=== PATIENT | female | born 1960 ===

== ENCOUNTER 2017-11-06 05:41 | Inpatient (IN) | payer OTHER ==
[2017-11-06] VITALS (14 sets, daily range): BP systolic 89–130; BP diastolic 54–88
[~2017-11-06] VITALS: Ht 167.6 cm; Wt 83.2 kg
[2017-11-06] MEDS ORDERED: SULFASALAZINE500 MG ORAL (06:24)
[2017-11-06] MEDS ORDERED: HUMERA INJ (06:24)
[2017-11-06] MEDS ORDERED: PREDNISONE1 MG PO (06:24)
[2017-11-06] MEDS ORDERED: fentaNYL 100 mcg/2 mL IV ONE (06:54)
[2017-11-06] MEDS ORDERED: Midazolam 2mg/2ml Inj ONE (06:56)
[2017-11-06] MEDS ORDERED: Succinylcholine 20mg/ml 10ml vial ONE (07:04)
[2017-11-06] MEDS ORDERED: Vancomycin 1gm inj IVPB ONE ×2 (07:04→07:23)
[2017-11-06] MEDS ORDERED: Lidocaine 1% MPF 10mg/ml 5ml ONE (07:08)
--- NOTE | 2017-11-06 07:22 | Pre-Procedure Note/Attestation ---
Pre-Procedure Note/Attestation Complete Prior to Procedure Planned Procedure: not applicable Procedure Narrative: Anterior cervical discectomy and fusion C5/6 Indications for Procedure Pre-Operative Diagnosis: C5/6 stenosis with HNP Attestation I attest that I discussed the nature of the procedure; its benefits; risks and complications; and alternatives (and the risks and benefits of such alternatives ), prior to the procedure, with the patient (or the patient's legal u.s. representative). I attest that, if there was a reasonable possibility of needing a blood transfusion, the patient (or the patient's legal u.s. representative) was given the [facility] standardized written summary, pursuant to the [place] Blood Safety Act ([place] Health and Safety Code # 1645, as amended). I attest that I re-evaluated the patient just prior to the surgery and that there has been no change in the patient's H&P, except as documented below:No changes. Terrance Goldman MD Nov 06, 2017 07:22
[2017-11-06] MEDS ORDERED: Thrombin 5000 units spray kit TOPIC ONE (07:23)
[2017-11-06] MEDS ORDERED: Gelfoam Size TOPIC ONE (07:24)
[2017-11-06] MEDS ORDERED: Thrombin 5000 units TOPIC ONE (07:24)
[2017-11-06] MEDS ORDERED: Bacitracin 50000 Units Vial ONE (07:24)
[2017-11-06] MEDS ORDERED: Gelfoam Absorbable 1gm powder pkt TOPIC ONE (07:24)
[2017-11-06] MEDS ORDERED: EPINEPHrine 1mg/1ml Amp ONE (07:24)
[2017-11-06] MEDS ORDERED: Bupivacaine 0.5% Inj 30 ml vial INJ ONE (07:25)
[2017-11-06] MEDS ORDERED: Sterile Water Irrig 1000ml IRRIG ONE (07:30)
[2017-11-06] MEDS ORDERED: NS 275ml ONE (07:30)
[2017-11-06] MEDS ORDERED: Zemuron 50mg/5ml Inj IV ONE (07:30)
[2017-11-06] MEDS ORDERED: LR 1000ml ONE (07:30)
[2017-11-06] MEDS ORDERED: NS Irrig 1000ml ONE (07:30)
[2017-11-06] MEDS ORDERED: Propofol 1,000mg/ 100ml btl IV ONE (07:30)
[2017-11-06] MEDS ORDERED: Dexamethasone 4mg/ml vial ONE (08:13)
[2017-11-06] MEDS ORDERED: Morphine Sulfate 10mg/ml Inj ONE (08:31)
[2017-11-06] MEDS ORDERED: Glycopyrrolate 0.2mg/ml 1ml Vial ONE (08:33)
[2017-11-06] MEDS ORDERED: Sodium Chloride 10ml vial INJ ONE (08:33)
[2017-11-06] MEDS ORDERED: Neostigmine 1mg/ml 10ml Inj ONE (08:33)
[2017-11-06] MEDS ORDERED: LR 1000ml 1,000 ML IVLG SCH (08:49)
--- NOTE | 2017-11-06 08:49 | Anethesia Preoperative Eval ---
Anesthesia Pre-op PMH/ROS General Date of Evaluation: Nov 06, 2017 Time of Evaluation: 07:20 Anesthesiologist: Deisi ASA Score: ASA 2 Mallampati Score Class I : Soft palate, uvula, fauces, pillars visible Class II: Soft palate, uvula, fauces visible Class III: Soft palate, base of uvula visible Class IV: Only hard plate visible Mallampati Classification: Class II Surgeon: Jones Diagnosis: Cervical radiculopathy Surgical Procedure: ACDF C5-C6 Anesthesia History: PONV Family History: no anesthesia problems Allergies: Coded Allergies: ACETAMINOPHEN (Verified Allergy, Unknown, 11/05/17) CEPHALEXIN (Verified Allergy, Unknown, 11/05/17) HYDROCODONE (Verified Allergy, Unknown, 11/05/17) Medications: see eMAR Past Medical History Cardiovascular: Denies: HTN, CAD, GA, valve dz, arrhythmia, other Pulmonary: Denies: asthma, COPD, MALI, other Gastrointestinal/Genitourinary: Reports: GERD - mild; Denies: CRI, ESRD, other Neurologic/Psychiatric: Reports: depression/anxiety, other - chronic pain; Denies: dementia, CVA, TIA Endocrine: Reports: steroids - Long time use of prednizone for RA HEENT: Denies: cataract (L), cataract (R), glaucoma, [place] (L), [place] (R), other Hematology/Immune: Denies: anemia, DVT, bleeding disorder, other Musculoskeletal/Integumentary: Reports: RA - stable; Denies: OA, DJD, DDD, edema, other Other: other - overweight PMH Narrative: as above PSxH Narrative: Hysterectomy, podiatry Sx Anesthesia Pre-op Phys. Exam Physician Exam Last Vital Signs Date Time Temp Pulse Resp B/P (MAP) Pulse Ox O2 Delivery O2 Flow Rate FiO2 11/06/17 06:27 97.7 92 20 130/88 (102) 97 97.7 11/06/17 06:12 Room Air Constitutional: NAD Neurologic: CN 2-12 intact Cardiovascular: RRR, no M/R/G Respiratory: CTA Gastrointestinal: S/NT/ND Airway Exam Mallampati Score: Class II MO: full Neck: stiff ROM: limited Teeth: intact Dentures: no upper, no lower Anesthesia Pre-op A/P Labs see chart Studies Pre-op Studies: EKG - NSR, CXR - WNL Risk Assessment & Plan Assessment: ASA 2 Plan: GA with ETT, Neuromonitoring, PONV prevention Status Change Before Surgery: No Pre-Antibiotics Drug: Vanco 1gr. Given Within 1 Hr of Incision: Yes Time Given: 08:18 Steven Lipscomb MD Nov 06, 2017 08:49
[2017-11-06] MEDS ORDERED: Ketorolac 30mg Inj IV PRN (09:00)
[2017-11-06] MEDS ORDERED: Metoclopramide 10mg/2ml Inj IVP PRN (09:00)
[2017-11-06] MEDS ORDERED: fentaNYL 100 mcg/2 mL IV PRN (09:00)
[2017-11-06] MEDS ORDERED: Midazolam 2mg/2ml Inj IVP PRN (09:00)
[2017-11-06] MEDS ORDERED: Acetaminophen (Non formulary) 100 ML IV ONE (09:00)
[2017-11-06] MEDS ORDERED: Meperidine 50mg/ml Inj(FOR RIGORS ONLY) IV PRN (09:00)
[2017-11-06] MEDS ORDERED: DiphenhydrAMINE 50mg/ml Inj IVP PRN (09:00)
[2017-11-06] MEDS ORDERED: Ketorolac 30mg Inj ONE (10:03)
[2017-11-06] MEDS ORDERED: traMADol 50mg tab ORAL PRN (10:45)
--- NOTE | 2017-11-06 10:52 | Immediate Post-Op Evaluation ---
Immediate Post-Op Evalulation Immediate Post-Op Evalulation Procedure: ACDF C5-C6 Date of Evaluation: Nov 06, 2017 Time of Evaluation: 10:51 IV Fluids: 1200 Blood Products: none Estimated Blood Loss: <50 Urinary Output: 150 Blood Pressure Systolic: 98 Blood Pressure Diastolic: 56 Pulse Rate: 75 Respiratory Rate: 20 O2 Sat by Pulse Oximetry: 99 Temperature (Fahrenheit): 97.6 Pain Score (1-10): 1 Nausea: No Vomiting: No Complications none Patient Status: reacts, patent, extubated, none Hydration Status: adequate Steven Lipscomb MD Nov 06, 2017 10:52
[2017-11-06] MEDS ORDERED: Naloxone 0.4mg/ml Inj IVP PRN (12:34)
[2017-11-06] MEDS: D5 1/2NS w/KCl 20mEq 1,000 ML IV SCH ×2 (13:00→23:58)
--- NOTE | 2017-11-06 14:35 | Diagnostic Imaging Report ---
Indication: Left upper extremity greater than right upper extremity neck pain, intraoperative Technique: Intraoperative images Comparison: none Findings: Initially image demonstrates a surgical tool projected anterior to the C5-6 disc. Subsequent images document placement of anterior fusion hardware and a disc spacer at C5-6, appearing well aligned Impression: Intraoperative imaging, as described
[2017-11-06] MEDS: traMADol 50mg tab ORAL PRN (17:08)
--- NOTE | 2017-11-06 17:46 | Operative Note - Dictated ---
DATE OF OPERATION: 11/06/2017 PREOPERATIVE DIAGNOSIS: Cervical radiculopathy with C5-C6 stenosis. POSTOPERATIVE DIAGNOSIS: Cervical radiculopathy with C5-C6 stenosis. PROCEDURE PERFORMED: 1. Anterior cervical discectomy and fusion at C5-6. 2. Application of biomechanical spacer with autograft and allograft fusion at C5-6. 3. Application of cervical plate at C5-6. 4. Use of microscope. SURGEON: Terrance Goldman M.D. DOBBY LOOM FIXER: Dr. Zacarias Proctor. ANESTHESIOLOGIST: Steven Lipscomb M.D. ANESTHESIA: General endotracheal with combined anesthetic. INTRAOPERATIVE FINDINGS: Good bone stock during instrumentation, decompression without any inadvertent neurologic SSEP changes, right-sided upper extremity SSEP change temporarily diminished and once adjustments was made by the pharmacy intake technician with reposition of the arm, SSEP in the right upper extremity improved, lower extremity SSEP has never diminished. Decompression successful with significant stenosis noted. Herniated small central disc protrusion residual was noted centrally with significant foraminal stenosis bilaterally. ESTIMATED BLOOD LOSS: Minimal. IV FLUIDS: Per anesthesia records. URINE OUTPUT: Per anesthesia records. IMPLANTS USED: X-spine cervical plate. INDICATION FOR PROCEDURE: This is a pleasant 57-year-old female with significant cervical pathology status post injury. The patient had persistent symptomatology due to a C5-6 stenosis that was recalcitrant. The patient failed a reasonable amount of conservative treatment with extensively in hopes to have the symptoms improved, however, they did not and the patient was indicated for surgery specifically an anterior cervical diskectomy fusion at C5-6. MRIs were consistent with the patient's symptomatology and corroborated her objective and subjective findings. The patient was preoperatively medically cleared. Due to her rheumatoid arthritis, she was taking medications. This apparently was weaned off by the patient's preop medical clearance physician. The patient was preoperatively cleared and optimized medically and subsequently taken to the operating room. PROCEDURE NOTE: The patient preoperatively provided informed consent. No guarantees of outcome were given. Alternatives to surgery were discussed. On the day of surgery, the patient was positively identified, taken to the operating room, intubated by the anesthesiologist, and appropriately positioned supine with neck in gentle extension. Localizing x-rays confirmed the level and the right-sided approach was undertaken. The neck was prepped and draped in usual sterile fashion. Surgical pause was undertaken. Antibiotics was delivered with vancomycin due to allergy. Once the surgical pause was performed, I made an incision approximately 1 to 1-1/2 inch on the right side with the approach over the sternocleidomastoid and incised the platysma in line with the skin incision. Traversing venous bleeders were clipped and cauterized and divided. The omohyoid and sternocleidomastoid interval was identified and bluntly dissected with Metzenbaum scissors and the prevertebral fascia was identified and the visceral structures were contralaterally retracted. The carotid pulsation was lateral and the prevertebral fascia and the disc space was identified. Subsequently, localizing x-ray was taken and confirmed the C5-6 level. Once the C5-6 level was identified, MRIs were reviewed once again and the surgery commenced with the diskectomy. The longus coli was elevated on both sides at the C5-6 level. Eden pin retraction and self-retaining retractors were brought into the field and placed and with the microscope, I was able to perform a radical diskectomy at C5-6, remove endplate cartilaginous material, prep the disc space for fusion, as well as perform a generous decompression of foramen and posterior dorsal osteophytectomy. The PLL was adherent to the dura and small central disk protrusion residual was also identified. It was caudally migrated behind C6. The foramen were quite stenotic. I was able to perform a generous decompression without excessive uncovertebral joint resection. There is no significant bleeding noted. No pulsatile bleeding noted. Once the decompression was completed with no significant changes of SSEP to the spinal cord, the cage was implanted after trialing. Local collected bone graft was placed with fiber graft, allograft, and bone graft customer service representative. A 6 mm height had been fit and a cervical plate was affixed with unicortical screws and with all screws locked in position. X-rays demonstrated good position of the cervical plate at C5-6 as well as the implant. The bone was packed in the lateral gutters along the uncovertebral joint that was remaining. The wound was copiously irrigated and after assessment for any bleeding or any viscerals injury, the platysma was reapproximated with 3-0 Vicryl and the skin was reapproximated with 4-0 Monocryl. COMPLICATIONS: None. DISPOSITION: To recovery in stable condition. Terrance Goldman M.D. DR: CHAKA JOB#: [id number] CC:
[2017-11-06] MEDS: Docusate 100mg cap ORAL SCH (17:56)
--- NOTE | 2017-11-06 19:10 | General Progress Note ---
Assessment/Plan Status Narrative S/P ACDF HISTORYOF RA HOLD BLU HOLD PREDNISONE OK TO RESUME THE SULFASALAZIEN INSTRUCETE DHER NOT TO TAKE BLU FOR ATLEAST 4 WEEKS POSTOP PAIN CONTROL PT OT DVT PROPHYALXIS Subjective Date patient seen: Nov 06, 2017 Allergies: Coded Allergies: ACETAMINOPHEN (Verified Allergy, Unknown, 11/05/17) CEPHALEXIN (Verified Allergy, Unknown, 11/05/17) HYDROCODONE (Verified Allergy, Unknown, 11/05/17) Subjective haqs nausea has intolerance to norcotic getting tramadol Objective Last 24 Hour Vital Signs Date Time Temp Pulse Resp B/P (MAP) Pulse Ox O2 Delivery O2 Flow Rate FiO2 11/06/17 18:07 97.2 11/06/17 17:08 97.2 11/06/17 16:00 98.0 17 102/59 (73) 99 98.0 11/06/17 13:05 97.2 92 17 100/61 (74) 98 97.2 11/06/17 12:30 Nasal Cannula 2.0 11/06/17 12:05 97.5 89 16 95/58 (70) 98 97.5 11/06/17 12:01 98.0 11/06/17 12:00 98.0 86 18 96/55 98 Nasal Cannula 3 98.0 11/06/17 11:45 79 15 91/54 100 Nasal Cannula 3 11/06/17 11:31 97.1 11/06/17 11:31 84 16 103/62 100 Nasal Cannula 3 11/06/17 11:15 79 15 95/60 100 Simple Mask 6 11/06/17 11:00 79 18 96/64 100 Simple Mask 6 11/06/17 10:52 207.7 75 20 99 11/06/17 10:50 77 15 97/64 99 Simple Mask 6 11/06/17 10:38 73 13 89/60 99 Simple Mask 6 11/06/17 10:33 72 13 90/59 99 Simple Mask 6 11/06/17 10:28 97.1 76 20 98/61 99 Simple Mask 6 97.1 11/06/17 06:27 97.7 92 20 130/88 (102) 97 97.7 11/06/17 06:12 Room Air Height (Feet): 5 Height (Inches): 6.00 Weight (Pounds): 165 General Appearance: WD/WN Cardiovascular: normal rate, regular rhythm, no JVD Respiratory/Chest: lungs clear Abdomen: soft Travis Pearson MD Nov 06, 2017 19:10
[2017-11-06] MEDS ORDERED: Vancomycin 1 GM in D5W 275 ML IVPB SCH (20:00)
[2017-11-06] MEDS ORDERED: Acetaminophen 650mg/20.3ml ORAL SCH (21:00)
[2017-11-07] VITALS: BP 137/72
[2017-11-07] MEDS: traMADol 50mg tab ORAL PRN ×3 (00:01→15:24)
[2017-11-07 04:00] VITALS: BP 107/75
[2017-11-07] MEDS: D5 1/2NS w/KCl 20mEq 1,000 ML IV SCH (06:30)
[2017-11-07] MEDS: Acetaminophen 650mg/20.3ml ORAL SCH ×3 (06:31→12:43)
--- NOTE | 2017-11-07 06:35 | 48 Hour Post Anesthesia Eval ---
Post Anesthesia Evaluation Procedure: ACDF C5-C6 Date of Evaluation: Nov 07, 2017 Time of Evaluation: 06:20 Blood Pressure Systolic: 107 0: 75 Pulse Rate: 92 Respiratory Rate: 18 Temperature (Fahrenheit): 98.1 O2 Sat by Pulse Oximetry: 100 Airway: patent Nausea: Yes - mild, improving Vomiting: No Pain Intensity: 2 Hydration Status: adequate Cardiopulmonary Status: at baseline Mental Status/LOC: patient returned to baseline Post-Anesthesia Complications: 0 Follow-up care needed: N/A - further care as per primary team Shari Christensen MD Nov 07, 2017 06:35
[2017-11-07 08:00] VITALS: BP 116/73
[2017-11-07] MEDS ORDERED: SulfASALAZine 500MG tab ORAL SCH ×2 (09:00)
[2017-11-07] MEDS: Docusate 100mg cap ORAL SCH (09:00)
[2017-11-07 10:38] LABS: ANION GAP 7 mmol/L (5-15); BLOOD UREA NITROGEN 10 mg/dL (7-18); CALCIUM 8.4 MG/DL (8.5-10.1); CARBON DIOXIDE 24 MMOL/L (21-32); CHLORIDE 107 MMOL/L (98-107); CREATININE 0.8 MG/DL (0.55-1.30); POTASSIUM 3.9 MMOL/L (3.5-5.1); SODIUM 138 MMOL/L (136-145)
[2017-11-07 12:00] VITALS: BP 135/75
[2017-11-07] MEDS ORDERED: D5 1/2NS w/KCl 20mEq 1,000 ML IV SCH (14:00)
[2017-11-07] MEDS ORDERED: Vancomycin 1 GM in D5W 275 ML IVPB ONE (15:00)
[2017-11-07] MEDS ORDERED: TRAMADOL HCL50 MG ORAL (15:53)
[2017-11-07] MEDS ORDERED: ZOFRAN4 M3 ORAL (15:55)
[2017-11-07] MEDS ORDERED: ACETAMINOPHEN325 M1 ORAL (15:58)
[2017-11-07 16:00] VITALS: BP 137/81
--- NOTE | 2017-11-08 08:19 | Discharge Summary ---
Discharge Summary Discharge Summary _ DATE OF ADMISSION: 11/06/2017 DATE OF DISCHARGE: 11/07/2017 CONSULTANTS: Dr. Terrance Judd BRIEF HOSPITAL COURSE: Patient is a 57-year-old female, with significant cervical pathology status post injury. The patient had persistent symptomatology due to a C5-C6 stenosis that was recalcitrant. She failed a reasonable amount of conservative treatment with extensive hopes to have symptoms improved, however, they did not and patient was indicated for surgery. She was admitted on 11/06/2017 and underwent ACDF on C5-C6 by Dr. Judd. She tolerated procedure well. Postoperatively patient was admitted and was continued on IV fluids. She was given pain management. She was placed on SCDs for DVT prophylaxis. She was encouraged use of incentive spirometry. Diet was advanced. She was unable to tolerate narcotics. Medication was changed to tramadol. She has history of rheumatoid arthritis. Humira and prednisone were placed on hold. She was instructed not to take Humira for at least 4 weeks postop. Sulfasalazine was resumed. She was ambulating well with physical therapy/occupational therapies. She was tolerating diet well. She was eventually cleared for discharge home to follow up with surgeon. FINAL DIAGNOSES: Cervical radiculopathy with C5-C6 stenosis Status post ACDF Rheumatoid arthritis DISPOSITION: Patient was discharged home. DISCHARGE MEDICATIONS: Refer to Discharge Medication List. I have been assigned to dictate discharge summary on this account, and I was not involved in the patient's management. Elly Schneider NP Nov 08, 2017 08:19
--- NOTE | 2017-11-08 11:15 | Discharge Summary ---
DATE OF ADMISSION: 11/06/2017 DATE OF DISCHARGE: 11/07/2017 NOTE: POOR AUDIO HISTORY: The patient is a 57-year-old female who is admitted to the hospital anterior cervical diskectomy and fusion. The patient underwent surgery without difficulty. Postoperatively, we had difficulty treating her pain because she has allergies to Vicodin and many narcotics. this patient has been placed on Tylenol and tramadol. The patient was discharged home after getting her second dose of antibiotic with tramadol 50 mg q.6 h. p.r.n. pain, Tylenol 650 mg [id number] four times a day for 10 days. The patient to have followup with Dr. Goldman in two weeks. The patient understands that the patient will need prophylaxis from now on. The patient understands to keep the wound dry and clean. for at least two weeks. Travis Pearson M.D. DR: ADRIAN JOB#: [id number] CC:
== END 2017-11-07 17:11 | disposition home or self-care (01) | DRG 473 ==
LOC: SDSOVERFLO 05:41 → 3E 12:05
PROC: 4A11X4G Monitoring of Peripheral Nervous Electrical Activity, Intraoperative, External Approach (ICD-10-PCS; principal; 2017-11-06 07:30)
PROC: 0RB30ZZ Excision of Cervical Vertebral Disc, Open Approach (ICD-10-PCS; principal; 2017-11-06 07:30)
PROC: 0RG1070 Fusion of Cervical Vertebral Joint with Autologous Tissue Substitute, Anterior Approach, Anterior Column, Open Approach (ICD-10-PCS; principal; 2017-11-06 07:30)
PROC: 00NW0ZZ Release Cervical Spinal Cord, Open Approach (ICD-10-PCS; principal; 2017-11-06 07:30)
DX: M48.02 Spinal stenosis, cervical region (principal); M50.122 Cervical disc disorder at C5-C6 level with radiculopathy; M06.9 Rheumatoid arthritis, unspecified; K21.9 Gastro-esophageal reflux disease without esophagitis; Z79.52 Long term (current) use of systemic steroids
CPT/HCPCS: 36415; 72040; 76001; 80048; 86850; 86900; 86901; 87081; 94003; 94150; J2250; J2405; J2710